=== PATIENT | male | born 2000 | race Caucasian/White ===

== ENCOUNTER 2019-03-21 10:02 | Day surgery (SDC) | payer BC, OTHER ==
[~2019-03-21] VITALS: Ht 172.7 cm; Wt 109.7 kg
[2019-03-21 10:36] VITALS: Ht 172.7 cm; Wt 109.7 kg
--- NOTE | 2019-03-21 11:08 | PREAC ---
Date/Time of Note Date/Time of Note DATE: 03/21/19 TIME: 11:06 Anesthesia Eval and Record Evaluation Time Pre-Procedure Interview DATE: 03/21/19 TIME: 11:06 Age 19 Sex male NPO: 8 hrs Preoperative diagnosis RECTAL BLEEDING, CHANGE IN BOWEL HABITS Planned procedure COLONOSCOPY Past Medical History Past Medical History: Includes Cardio: HTN (NOT ON MEDS) GI: Obesity (BMI 37) Surgery & Anesthesia Issues No known issue (NEVER HAD ANESTHESIA) Meds Anticoagulation: No Beta Ramin within 24 hr: No Reason Beta Ramin not given: Pt. not on B-Ramin Reported Medications [None] No Conflict Check 03/21/19 Meds reviewed: Yes (NONE) Allergies Coded Allergies: No Known Allergy (Unverified , 03/21/19) Allergies Reviewed: Yes Labs/Studies Labs Reviewed: Reviewed by anesthesiologist (NONE) test: N/A Pre-procedure Exam Airway: Adequate mouth opening, Adequate thyromental dist Mallampati: Mallampati II Teeth: Normal Lung: Normal Heart: Normal ASA Physical Status ASA physical status: 2 Emergency: None Planned Anesthetic General/MAC: MAC, TIVA Planned Pain Management Parenteral pain med, Local by surgeon Pre-operative Attestations Prior to commencing anesthesia and surgery, the patient was re-evaluated, there was verification of: *The patient's identity *The results of appropriate recent lab work and preoperative vital signs *The above evaluation not changing prior to induction *Anesthetic plan, risk benefits, alternative and complications discussed with patient/family; questions answered; patient/family understands, accepts and wishes to proceed. DANIEL NIEVES Mar 21, 2019 11:07
[2019-03-21] MEDS ORDERED: PROPOFOL 20 ML ONE (11:27)
[2019-03-21] MEDS ORDERED: LIDOCAINE 2% (SDV) 5 ML INJ ONE (11:27)
[2019-03-21] MEDS ORDERED: MIDAZOLAM 1 MG/ML 2 ML INJ ONE (11:29)
[2019-03-21 11:36] VITALS: BP 170/86; PULSE 114; RESP 27
[2019-03-21 12:39] VITALS: BP 134/62; PULSE 82; RESP 10
== END 2019-03-21 13:22 | disposition home or self-care (01) ==
LOC: GIL 10:02
PROVIDERS: ATTEND Internal Medicine Gastroenterology
DX: K64.8 Other hemorrhoids (principal); D12.5 Benign neoplasm of sigmoid colon; I10 Essential (primary) hypertension
CPT/HCPCS: 45385; 88305; J2250; Z7610